=== PATIENT | male | born 1955 | race Caucasian/White ===

== ENCOUNTER 2025-03-11 08:23 | Inpatient (IN) | payer MEDICARE ==
[2025-03-11 08:49] LABS: #Basophils 0.03 10x3/uL (0.0-0.2); #Eosinophils 0.14 10x3/uL (0.0-0.5); #Monocytes 0.64 10x3/uL (0.0-1.1); #Neutrophils 4.35 10x3/uL (1.5-8.4); %Basophils 0.4 % (0.0-2.0); %Eosinophils 1.8 % (0.0-6.0); %Lymphocytes 35.0 % (18.0-47.0); %Monocytes 8.0 % (0.0-10.0); %Neutrophils 54.5 % (40.0-75.0); Hematocrit 50.9 % (38.8-50.0); Hemoglobin 17.0 g/dL (13.5-17.5); Mean Corpuscular Hemoglobin 31.2 pg (27.0-33.0); Mean Corpuscular Volume 93.4 fL (81.2-95.1); Platelet Count 273 10x3/uL (150-450); Red Blood Cell (RBC) Count 5.45 10x6/uL (4.32-5.72); White Blood Cell (WBC) Count 7.97 10x3/uL (3.5-10.5)
[2025-03-11] MEDS ORDERED: dilTIAZem 25 MG/5 ML VIAL ONE (08:52)
[2025-03-11] MEDS ORDERED: Aspirin Chewable 81 MG TAB ONE (08:52)
[2025-03-11 09:06] LABS: ALT (SGPT) 21 U/L (Less than 45); AST (SGOT) 23 U/L (11-34); Albumin 4.3 g/dL (3.1-4.5); Alkaline Phosphatase 61 U/L (40-110); Anion Gap 13 mmol/L (10-20); BUN (Urea Nitrogen) 20 mg/dL (8.4-25.7); Bilirubin, Total 0.7 mg/dL (0.3-1.2); Calc. Creatinine Clearance 0 mL/min (70-130); Calcium 9.6 mg/dL (7.8-10.44); Carbon Dioxide 25 mmol/L (23-31); Chloride 109 mmol/L (98-107); Globulin 2.9 g/dL (2.4-3.5); Glucose 134 mg/dL (80-115); Potassium 4.3 mmol/L (3.5-5.1); Sodium 143 mmol/L (136-145)
[2025-03-11 09:08] LABS: Troponin I 0.011 ng/mL (< 0.028)
[2025-03-11 10:41] LABS: Magnesium 2.1 mg/dL (1.6-2.6)
[2025-03-11] MEDS ORDERED: Ondansetron PF 4 MG/2 ML Vial IVP PRN (10:45)
[2025-03-11] MEDS ORDERED: Acetaminophen 325 MG TAB PO PRN (10:45)
[2025-03-11] MEDS: Calcium Carbonate 500 MG ChewTAB PO PRN (14:24)
[2025-03-11] MEDS: Apixaban 5 MG TAB PO SCH (20:55)
[2025-03-11] MEDS: Mupirocin 1 GM TUBE NASAL DECOLONIZATION NASAL SCH (20:55)
[2025-03-11] MEDS ORDERED: Enoxaparin 80 MG (0.8 mL) SYRINGE SC SCH (21:00)
[2025-03-12 03:41] LABS: #Basophils 0.04 10x3/uL (0.0-0.2); #Eosinophils 0.15 10x3/uL (0.0-0.5); #Monocytes 0.93 10x3/uL (0.0-1.1); #Neutrophils 6.46 10x3/uL (1.5-8.4); %Basophils 0.4 % (0.0-2.0); %Eosinophils 1.4 % (0.0-6.0); %Lymphocytes 31.4 % (18.0-47.0); %Monocytes 8.4 % (0.0-10.0); %Neutrophils 58.3 % (40.0-75.0); Hematocrit 50.3 % (38.8-50.0); Hemoglobin 17.0 g/dL (13.5-17.5); Mean Corpuscular Hemoglobin 31.5 pg (27.0-33.0); Mean Corpuscular Volume 93.1 fL (81.2-95.1); Platelet Count 273 10x3/uL (150-450); Red Blood Cell (RBC) Count 5.40 10x6/uL (4.32-5.72); White Blood Cell (WBC) Count 11.06 10x3/uL (3.5-10.5)
[2025-03-12 03:57] LABS: Anion Gap 17 mmol/L (10-20); BUN (Urea Nitrogen) 15 mg/dL (8.4-25.7); Calc. Creatinine Clearance 75 mL/min (70-130); Calcium 9.1 mg/dL (7.8-10.44); Carbon Dioxide 22 mmol/L (23-31); Cardiac Risk 4.7 (Less than 4.5); Chloride 106 mmol/L (98-107); Cholesterol 260 mg/dl (< 200 Desired); Glucose 104 mg/dL (80-115); HDL Cholesterol 55 mg/dL (>60 Neg Risk); LDL Cholesterol, Calculated 174 mg/dL; Magnesium 2.0 mg/dL (1.6-2.6); Potassium 3.9 mmol/L (3.5-5.1); Sodium 141 mmol/L (136-145); Triglycerides 157 mg/dL (Less than 150)
[2025-03-12] MEDS: Diltiazem HCl/D5W 125 MG in Premix 1 BAG IVPB SCH (06:26)
[2025-03-12] MEDS: Enoxaparin 80 MG (0.8 mL) SYRINGE SC SCH (07:13)
[2025-03-12] MEDS: Pantoprazole 40 MG DR.TAB PO SCH (07:55)
[2025-03-13 03:38] LABS: #Basophils Less than 0.03 10x3/uL (0.0-0.2); #Eosinophils 0.16 10x3/uL (0.0-0.5); #Monocytes 0.75 10x3/uL (0.0-1.1); #Neutrophils 5.20 10x3/uL (1.5-8.4); %Basophils 0.2 % (0.0-2.0); %Eosinophils 1.8 % (0.0-6.0); %Lymphocytes 32.2 % (18.0-47.0); %Monocytes 8.3 % (0.0-10.0); %Neutrophils 57.3 % (40.0-75.0); Hematocrit 48.1 % (38.8-50.0); Hemoglobin 16.3 g/dL (13.5-17.5); Mean Corpuscular Hemoglobin 31.5 pg (27.0-33.0); Mean Corpuscular Volume 93.0 fL (81.2-95.1); Platelet Count 269 10x3/uL (150-450); Red Blood Cell (RBC) Count 5.17 10x6/uL (4.32-5.72); White Blood Cell (WBC) Count 9.07 10x3/uL (3.5-10.5)
[2025-03-13 03:54] LABS: Anion Gap 12 mmol/L (10-20); BUN (Urea Nitrogen) 14 mg/dL (8.4-25.7); Calc. Creatinine Clearance 70 mL/min (70-130); Calcium 8.6 mg/dL (7.8-10.44); Carbon Dioxide 26 mmol/L (23-31); Chloride 106 mmol/L (98-107); Glucose 109 mg/dL (80-115); Potassium 4.1 mmol/L (3.5-5.1); Sodium 140 mmol/L (136-145)
[2025-03-13 06:10] VITALS: BMI 26.6
[2025-03-13 09:39] VITALS: BP 141/93; TEMP 97.5
== END 2025-03-13 09:39 | disposition home or self-care (01) | DRG 310 ==
LOC: SUATTDRO 08:23 → CSHERS 08:23 → CSHICU 10:25
PROVIDERS: ADMIT Family Medicine; ATTEND Hospitalist
DX: I48.91 Unspecified atrial fibrillation (principal); E78.5 Hyperlipidemia, unspecified; F10.90 Alcohol use, unspecified, uncomplicated; R03.0 Elevated blood-pressure reading, without diagnosis of hypertension; Z66 Do not resuscitate; I77.819 Aortic ectasia, unspecified site; Z82.49 Family history of ischemic heart disease and other diseases of the circulatory system
CPT/HCPCS: 36415; 71045; 80048; 80053; 80061; 83036; 83735; 83880; 84100; 84425; 84443; 84484; 85025; 85379; 93005; 93010; 93306; 94760; 96365; 96366; 96376